=== PATIENT | female | born 1985 | race Caucasian/White ===

== ENCOUNTER 2023-08-16 18:30 | Emergency (ER) | payer BC, SELFPAY ==
[2023-08-16 18:48] VITALS: BP 139/84
[2023-08-16 19:13] LABS: % Basophils 0.9 % (0-2); % Eosinophils 0.9 % (0-6); % Immature Granulocytes 0.3 % (0-0.5); % Lymphocytes 35.2 % (20.5-51.1); % Monocytes 6.9 % (1.7-9.3); % Neutrophils 55.8 % (42.2-75.2); Absolute Basophils 0.1 10^3/uL (0-0.2); Absolute Eosinophils 0.1 10^3/uL (0-0.7); Absolute Monocytes 0.4 10^3/uL (0.1-0.6); Absolute Neutrophils 3.2 10^3/uL (1.4-6.5); Hematocrit 34.1 % (37.0-47.0); Mean Corp Hgb Conc. 32.3 g/dL (33.0-37.0); Mean Corpuscular Hgb 25.9 pg (27.0-31.0); Mean Corpuscular Volume 80.4 fL (81.0-99.0); Mean Platelet Volume 10.7 fL (7.4-10.4); Nucleated Red Blood Cells % 0 %; Platelet Count 339 10^3/uL (130-400); Red Blood Cell Count 4.24 10^6/uL (4.20-5.40); Red Cell Dist. Width 15.2 % (11.5-14.5); White Blood Cell Count 5.8 10^3/uL (4.8-10.8)
[2023-08-16 19:23] LABS: HCG, Serum Qualitative Screen Negative
[2023-08-16 19:29] LABS: ALT (SGPT) 38 U/L (0-35); AST (SGOT) 31 U/L (14-36); Albumin 4.7 g/dl (3.5-5.0); Alkaline Phosphatase 42 U/L (38-126); Blood Urea Nitrogen 12 mg/dl (7-17); Calcium 10.1 mg/dl (8.4-10.2); Carbon Dioxide 27 mmol/L (22-30); Chloride 103 mmol/L (98-107); Glucose 106 mg/dl (70-99); Potassium 3.7 mmol/L (3.5-5.1); Sodium 138 mmol/L (135-145); Total Bilirubin 0.4 mg/dl (0.2-1.3); Total Protein 7.5 g/dl (6.3-8.2); eGFR > 60.00
[2023-08-16 19:37] LABS: Troponin I < 0.012 ng/ml
--- NOTE | 2023-08-16 19:45 | ED.GENMED ---
History of Present Illness
General
Chief Complaint: Chest Problem
Source: patient
Exam Limitations: none
Time Seen by Provider: 08/16/23 19:38
Nursing documentation reviewed up to this point in time: agreed with
Travel History
Have you had any contact with someone who has COVID-19?: No
Do you have any symptoms of coronavirus? Fever > 100 degrees, chills, cough, shortness of breath, sore throat, loss of taste or smell, muscle aches, or headache?: No
History of Present Illness
History of Present Illness:
38-year-old female presents emergency department complaining of generalized weakness, unable to gain weight, vomiting, chest discomfort and hot flashes. She was seen at [facility], with no definitive diagnosis found, CBC, CMP lipase and EKG
were all normal with the exception of mild anemia with hemoglobin 10.5
Past History
Past History
ED Past Medical History: Asthma and Other (Migraines, anorexia, nausea vomiting)
ED Past Surgical History: Appendectomy, and Orthopedic (Ulnar nerve left arm)
Social History
Tobacco: Non-smoker
Alcohol: None
Drug: Marijuana
Review of Systems
Review of Systems
Allergies reviewed?: Yes
All Other Systems: Not applicable
Constitutional: Reports no symptoms
EENT: Reports no symptoms
Respiratory: Reports no symptoms
Cardiac: Reports no symptoms
ABD/GI: Reports abdominal pain and vomiting
: Reports no symptoms
Musculoskeletal: Reports no symptoms
Skin: Reports no symptoms
Neurological: Reports no symptoms
Endocrine: Reports no symptoms
Hematologic/Lymphatic: Reports no symptoms
Psychiatric: Reports no symptoms
Phy Exam
Physical Exam
Physical Exam:
Physical Exam
General: no apparent distress, not acutely ill
Neck: supple. no meningeal signs. normal posterior pharynx
Heart: s1/s2 regular rate and rhythm, no murmur. equal radial
pulses.
HEENT: Pupils equal round reactive to light, EOMI
Lungs: no acute respiratory distress. clear bilaterally
Abdomen: normal bowel sounds. Mild epigastric tenderness. No CVAT
Neuro: alert and oriented. no focal neurological deficits cranial nerves II through XII intact
Skin: no rash
Psychiatric: well kept. interactive and cooperative
Extremities: no edema. no calf tenderness. negative homans. good distal pulses
Course
Orders/Labs/Results
Orders:
Orders
08/16/23 18:32
Electrocardiogram (*1) Urgent
Reason for Study: Chest Pain
EKG- Treatment ONCE
08/16/23 18:48
CMP [Comprehensive Metabolic Panel] Urgent
HCG, Serum Qualitative Screen Urgent
Lipase Urgent
TSH Reflex To Free T4 Urgent
Comment: ADD ON
Vitamin B12 Urgent
Comment: ADD ON
08/16/23 18:52
Test Result ONCE
08/16/23 18:57
CBC/With Diff [Complete Blood Count/With Diff] Urgent
Troponin I Urgent
08/16/23 20:04
IV Insert/Care/Rem.- Treatment PRN
0.9% Sodium Chloride 1000 ml [Nss] 1,000 ml IV BOLUS
Pantoprazole [Protonix IV] 40 mg IV NOW STA
US Abdomen Complete/Upper Urgent
Comment:
Reason For Exam: epigastric abdominal pain
08/16/23 20:14
Add On- LAB Urgent
Tests Added?: b12, thiamine
08/16/23 20:22
Haloperidol Lactate [Haldol] 1 mg IV NOW STA
08/16/23 20:25
Add On- LAB Urgent
Tests Added?: tsh w/reflex T4
08/16/23 21:10
Electrocardiogram (*1) Routine
Reason for Study: QTc Monitoring
08/16/23 21:11
EKG- Treatment ONCE
Abnormal Lab Results
08/16/23 08/16/23
18:48 18:57
Hgb 11.0 L g/dL
(12.0-16.0)
Hct 34.1 L %
(37.0-47.0)
MCV 80.4 L fL
(81.0-99.0)
MCH 25.9 L pg
(27.0-31.0)
MCHC 32.3 L g/dL
(33.0-37.0)
RDW 15.2 H %
(11.5-14.5)
MPV 10.7 H fL
(7.4-10.4)
Creatinine 0.5 L mg/dL
(0.6-1.0)
Glucose 106 H mg/dl
(70-99)
ALT 38 H U/L
(0-35)
08/16/23 18:57
08/16/23 18:48
Vital Signs
Initial and Last Documented VS:
Initial Vital Signs
Temp Pulse Resp BP Pulse Ox
98.1 F 61 18 139/84 98
08/16/23 18:48 08/16/23 18:48 08/16/23 18:48 08/16/23 18:48 08/16/23 18:48
Last Documented Vital Signs
Temp Pulse Resp BP Pulse Ox
98.1 F 61 18 137/90 98
08/16/23 18:48 08/16/23 18:48 08/16/23 18:48 08/16/23 21:00 08/16/23 21:15
MDM/Problems Addressed
Differential Diagnosis Includes:
pancreatitis, cholecysitis, cannabis hyperemesis cannabis
MDM/Problems Addressed:
38 yo female with n/v, abdominal pain. No acute findings, but chronic symptoms possibly due chronic cannabis use and anorexia.
Chronic conditions affecting care: Asthma and Other (anorexia)
Acute Exacerbation and/or Progression of Chronic Illness: Asthma and Other (anorexia)
*Radiology
Radiology exam reviewed: radiology read reviewed (US abd nad)
*Pulse Oximetry
Patient hypoxic: no
*EKG
Interpreted by ED Provider?: Yes
EKG Intrepretation Date: 08/16/23
EKG Intrepretation Time: 18:44
Interpretation: abnormal
Comparison EKG: no comparison EKG present
Heart Rate: 65
Rate: normal
Rhythm: sinus
[place]: normal axis
Interval: short [place]
QRS Pattern: normal QRS
Ischemia: no ischemia
*Vp Clinical Research Interpretation
Rate: normal
Interpretation: normal
Heart Rate: 61
Rhythm: sinus
*Critical Care Note
Total Time (30-74mins, 75-104mins- exclusive of procedures): Not Applicable
Data Reviewed
Review of Other/Old Records Reveals: Labs
Patient Management
Social determinants of health affecting care: Living situation and Strong social support
Escalation/DeEscalation of care consider admission/obs:
admit not indicated
ED Attending Note
-
Portions of this chart may have been created with voice recognition software.� Occasional wrong word or��sound alike� substitutions may have occurred due to the inherent limitations of voice recognition software.
Discharge Plan
Departure
Patient Disposition: Home (Routine Discharge)
Date of Disposition: 08/16/23
Time of Disposition: 22:49
Patient with high blood pressure during this ER visit?: Yes
Condition: Good
Discharge Problem:
Vomiting, Abdominal pain
Instructions: Nausea and Vomiting, Adult, Cannabis hyperemesis syndrome, BLOOD PRESSURE
Prescriptions:
New
ondansetron 4 mg tablet,disintegrating
4 mg PO Q8H PRN (Reason: nausea and vomiting) 4 Days Qty: 10 0RF
Referrals:
NONE,* [Family Provider] -
Char Mcelroy MD [Active] - Call in 1-3 days for appt
Interventions
Interventions:
*Risk Screen - Suicide Last Done: 08/16/23 21:14
*General Assessment Last Done: 08/16/23 21:14
*Neglect/Abuse Screening Last Done: 08/16/23 21:14
ED- Fall Risk Assessment Last Done: 08/16/23 21:14
*ED COVID-19 Vaccine History Last Done: 08/16/23 21:14
ED- Cardiac Assessment Last Done: 08/16/23 21:14
ED- Pulmonary Assessment Last Done: 08/16/23 21:14
[2023-08-16 19:59] LABS: Lipase 148 U/L (23-300)
[2023-08-16 20:55] VITALS: BP 122/86
[2023-08-16 21:00] VITALS: BP 137/90
[2023-08-16] MEDS: NSS 1000 IV (21:00)
[2023-08-16] MEDS: PROTONIX IV 40 MG IV (21:05)
[2023-08-16] MEDS: HALDOL 1 MG IV (21:08)
[2023-08-16 21:10] LABS: TSH Reflex To Free T4 1.48 uIU/ml (0.47-4.68)
[2023-08-16 21:13] VITALS: BMI 18.1
[2023-08-16 22:20] VITALS: BP 111/71
[2023-08-16 22:43] LABS: Vitamin B12 986 pg/ml (239-931)
[2023-08-16 23:00] VITALS: BP 117/84
[2023-08-21 06:38] LABS: Vitamin B1, Plasma 8 nmol/L (4-15)
== END 2023-08-16 23:18 | disposition home or self-care (01) ==
LOC: EMR 18:30
PROVIDERS: Emergency Medicine; EMERGENCY PHYSICIAN Emergency Medicine
DX: R10.9 Unspecified abdominal pain (principal); R11.10 Vomiting, unspecified; R03.0 Elevated blood-pressure reading, without diagnosis of hypertension
CPT/HCPCS: 99285; 76700; 80053; 82607; 83690; 84425; 84443; 84484; 84703; 85025; 93005

== ENCOUNTER 2023-11-06 10:27 | Emergency (ER) | payer BC, SELFPAY ==
[2023-11-06 10:43] VITALS: BP 131/87
--- NOTE | 2023-11-06 11:23 | ED.SKININJ ---
HPI-Injury
General
Chief Complaint: Bite
Exam Limitations: none
Time Seen by Provider: 11/06/23 11:03
Travel History
Have you had any contact with someone who has COVID-19?: No
Do you have any symptoms of coronavirus? Fever > 100 degrees, chills, cough, shortness of breath, sore throat, loss of taste or smell, muscle aches, or headache?: No
History of Present Illness-Injury
Is pt an associate of [facility]?: No
Initial Injury comments:
See MDM
Past History
Past History
ED Past Medical History: Asthma and Other (Migraines, anorexia, nausea vomiting)
ED Past Surgical History: Appendectomy, and Orthopedic (Ulnar nerve left arm)
Social History
Tobacco: Non-smoker
Alcohol: None
Drug: Marijuana
Phy Exam
Physical Exam
Physical Exam:
See MDM
Course
Orders/Labs/Results
Orders:
Orders
11/06/23 11:20
Tetanus/Diphth/Acelpertussis [Adacel] 0.5 ml IM .ONCE ONE
11/06/23 11:26
Neomycin/Polymyxin/Hc [Cortisporin Otic Suspension] See Dose Instructions OTIC NOW STA
11/06/23 12:06
Rabies Immune Globulin/Pf [HyperRAB] 1,166 unit IM NOW STA
11/06/23 12:15
Rabies Vaccine (Pcec)/Pf [Rabavert Rabies Vacc W-Diluent] 2.5 unit IM .ONCE ONE
11/06/23 12:16
Complete Blood Count/With Diff Urgent
Comprehensive Metabolic Panel Urgent
Abnormal Lab Results
11/06/23
12:16
Hgb 10.4 L g/dL
(12.0-16.0)
Hct 32.8 L %
(37.0-47.0)
MCV 77.4 L fL
(81.0-99.0)
MCH 24.5 L pg
(27.0-31.0)
MCHC 31.7 L g/dL
(33.0-37.0)
RDW 16.6 H %
(11.5-14.5)
Absolute Lymphs (auto) 1.1 L 10^3/uL
(1.2-3.4)
Neutrophils % 79.5 H %
(42.2-75.2)
Lymphocytes % 14.3 L %
(20.5-51.1)
Glucose 101 H mg/dl
(70-99)
11/06/23 12:16
11/06/23 12:16
Vital Signs
Initial and Last Documented VS:
Initial Vital Signs
Temp Pulse Resp BP Pulse Ox
98.3 F 85 16 131/87 100
11/06/23 10:43 11/06/23 10:43 11/06/23 10:43 11/06/23 10:43 11/06/23 10:43
Last Documented Vital Signs
Temp Pulse Resp BP Pulse Ox
98.3 F 85 16 131/87 100
11/06/23 10:43 11/06/23 10:43 11/06/23 10:43 11/06/23 10:43 11/06/23 10:43
MDM/Problems Addressed
Differential Diagnosis Includes:
HPI and MDM Narrative:
38-year-old female presenting with a bite from a baby groundhog. Patient noticed that groundhogs were recently born. She states 1 did not look like it was doing well so she tried to pick it up and it bit her on her left middle finger. She states
it did draw blood.
Patient seeking rabies vaccine. She is unsure about her last tetanus shot. Patient also stating that she believes she has an undiagnosed seizure disorder. She states that this only happens when she is alone. Never happens in front of other
people. She states she gets overwhelmed and anxious and it feels like she falls asleep even though she never loses consciousness. She denies any uncontrollable body movements or loss of bowel or bladder function. She states her psychiatrist
believes this is not a seizure. I tend to agree. She is supposed to restart her trileptal. I discussed she should have this further evaluated by a neurologist
Patient also complaining of right ear pain. Patient states her ear is clogged and she has been picking at it
Physical exam
General: Well appearing and non-toxic
HEENT: protecting airway. Right-sided otitis externa with self-inflicted abrasions
Neck: appears supple
CV: No evidence of cyanosis
Resp: No accessory muscle use
Abd: Non-distended
Extremities: Extremely small skin bite to left middle finger
Neuro: alert
Psych: Normal affect
Skin: Intact
Problems Addressed including Acute and Chronic Conditions affecting care:
1. Animal bite
Acuity: acute
Prognosis: stable
Details: I discussed low transmission of rabies from groundhog. Patient is seeking rabies vaccine. Will start the rabies vaccine and update tetanus
2. Right ear otitis externa
Acuity: acute
Prognosis: stable
Details: Will start Cortisporin
3. Seizure-like activity
Acuity: acute
Prognosis: stable
Details: Discussed this is likely more mental health and true seizures. Discussed taking her Trileptal and following up with neurology
Updates
Discussed low hemoglobin and increasing her iron intake
Differential Diagnosis (but not limited to): Stress, anxiety, animal bite, otitis externa
Testing considered: CT head but she has no focal deficits
Drug therapy (if applicable): OTC meds, please see d/c instruction regarding Rx drugs
Amount and/or Complexity of Data Reviewed
Clinical info obtained from: Patient
External data reviewed: N/A
Labs I independently reviewed (but not limited to): Anemia
Radiology: N/A
Pulse Ox: not hypoxic
EKG independently reviewed: N/A
[place]: N/A
Critical Care: N/A
Risk of Complication:
Social Determinants of health: Good social support
Discussed with other providers: N/A
Escalation of Care includes Admit/Obs: After being observed in the Emergency Department, pt stable for discharge.
Occasional wrong word or 'sound a like' substitutions may have occurred due to the inherent limitations of voice recognition software. Read the chart carefully and recognize, using context, where substitutions have occurred.
*Critical Care Note
Total Time (30-74mins, 75-104mins- exclusive of procedures): Not Applicable
ED Attending Note
-
Portions of this chart may have been created with voice recognition software.� Occasional wrong word or��sound alike� substitutions may have occurred due to the inherent limitations of voice recognition software.
Discharge Plan
Departure
Patient Disposition: Home (Routine Discharge)
Date of Disposition: 11/06/23
Time of Disposition: 13:33
Patient with high blood pressure during this ER visit?: No
Discharge Problem:
Animal bite, Otitis externa
Instructions: Rabies
Prescriptions:
New
Imovax Rabies Vaccine (PF) 2.5 unit recon soln
2.5 unit IM ONCE Qty: 3 0RF
Rx Instructions:
Day 3: 11/09/23
Day 7: 11/13/23
Day 14: 11/20/23
No Action
ondansetron 4 mg tablet,disintegrating
4 mg PO Q8H PRN (Reason: nausea and vomiting) 4 Days Qty: 10 0RF
Referrals:
NONE,* [Family Provider] -
Stand Alone Forms: Rabies Vaccine Post Exp Dosing
Activity Restrictions/Additional Instructions:
Please return for any worsening symptoms.
You may return at any time if you have further concerns.
Please go to the infusion center to finish the rabies vaccine.
Please follow up with your doctor at the first available appointment, preferably this week.
Please start the Trileptal as prescribed. Please use the eardrops for the next [address] 4 drops in your right ear 4 times a day.
Thank you for choosing [facility].
Interventions
Interventions:
*Risk Screen - Suicide Last Done: 11/06/23 10:43
*General Assessment Last Done: 11/06/23 10:43
*Neglect/Abuse Screening Last Done: 11/06/23 10:43
*ED COVID-19 Vaccine History Last Done: 11/06/23 10:43
Discharge Date and Time
Print Language: MAURITIAN
[2023-11-06 11:24] VITALS: BMI 21.4
[2023-11-06] MEDS: RABAVERT RABIES VACC W-DILUENT 2.5 UNIT IM (12:26)
[2023-11-06] MEDS: HyperRAB 1166 UNIT IM (12:29)
[2023-11-06 12:39] LABS: % Basophils 0.8 % (0-2); % Eosinophils 0.3 % (0-6); % Immature Granulocytes 0.5 % (0-0.5); % Lymphocytes 14.3 % (20.5-51.1); % Monocytes 4.6 % (1.7-9.3); % Neutrophils 79.5 % (42.2-75.2); Absolute Basophils 0.1 10^3/uL (0-0.2); Absolute Lymphocytes 1.1 10^3/uL (1.2-3.4); Absolute Monocytes 0.4 10^3/uL (0.1-0.6); Absolute Neutrophils 6.2 10^3/uL (1.4-6.5); Hematocrit 32.8 % (37.0-47.0); Hemoglobin 10.4 g/dL (12.0-16.0); Mean Corp Hgb Conc. 31.7 g/dL (33.0-37.0); Mean Corpuscular Hgb 24.5 pg (27.0-31.0); Mean Corpuscular Volume 77.4 fL (81.0-99.0); Mean Platelet Volume 9.9 fL (7.4-10.4); Nucleated Red Blood Cells % 0 %; Platelet Count 355 10^3/uL (130-400); Red Blood Cell Count 4.24 10^6/uL (4.20-5.40); Red Cell Dist. Width 16.6 % (11.5-14.5); White Blood Cell Count 7.8 10^3/uL (4.8-10.8)
[2023-11-06] MEDS: ADACEL 0.5 ML IM (12:39)
[2023-11-06 12:45] LABS: ALT (SGPT) 26 U/L (0-35); AST (SGOT) 26 U/L (14-36); Albumin 4.6 g/dl (3.5-5.0); Alkaline Phosphatase 46 U/L (38-126); Blood Urea Nitrogen 10 mg/dl (7-17); Calcium 9.6 mg/dl (8.4-10.2); Carbon Dioxide 26 mmol/L (22-30); Chloride 106 mmol/L (98-107); Estimated Creatinine Clearance 116 ml/min; Glucose 101 mg/dl (70-99); Potassium 3.9 mmol/L (3.5-5.1); Sodium 139 mmol/L (135-145); Total Bilirubin 0.4 mg/dl (0.2-1.3); Total Protein 7.3 g/dl (6.3-8.2); eGFR > 60.00
[2023-11-06] MEDS: CORTISPORIN OTIC SUSPENSION 1 DROP OTIC (12:57)
== END 2023-11-06 14:08 | disposition home or self-care (01) ==
LOC: EMR 10:27
PROVIDERS: EMERGENCY PHYSICIAN Student in an Organized Health Care Education/Training Program
DX: S61.253A Open bite of left middle finger without damage to nail, initial encounter (principal); H60.501 Unspecified acute noninfective otitis externa, right ear; W55.81XA Bitten by other mammals, initial encounter; Z20.3 Contact with and (suspected) exposure to rabies; Z23 Encounter for immunization; J45.909 Unspecified asthma, uncomplicated; G43.909 Migraine, unspecified, not intractable, without status migrainosus; R56.9 Unspecified convulsions
CPT/HCPCS: 90375; 99284; 90471; 96372; 80053; 85025; 90675; 90715

== ENCOUNTER 2023-11-18 08:56 | Emergency (ER) | payer MEDICARE, SELFPAY ==
[2023-11-18 08:57] VITALS: BP 158/95
[2023-11-18 09:01] LABS: Glucose - Point of Care 112 mg/dl (70-99)
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
[2023-11-18] MEDS: NSS 1000 IV (09:18)
[2023-11-18 09:25] LABS: % Basophils 0.6 % (0-2); % Eosinophils 0.7 % (0-6); % Immature Granulocytes 0.6 % (0-0.5); % Lymphocytes 12.7 % (20.5-51.1); % Monocytes 5.8 % (1.7-9.3); % Neutrophils 79.6 % (42.2-75.2); Absolute Basophils 0.1 10^3/uL (0-0.2); Absolute Eosinophils 0.1 10^3/uL (0-0.7); Absolute Immature Granulocytes 0.1 10^3/uL (0-0.05); Absolute Lymphocytes 1.4 10^3/uL (1.2-3.4); Absolute Monocytes 0.6 10^3/uL (0.1-0.6); Absolute Neutrophils 8.8 10^3/uL (1.4-6.5); Hematocrit 32.5 % (37.0-47.0); Hemoglobin 10.1 g/dL (12.0-16.0); Mean Corp Hgb Conc. 31.1 g/dL (33.0-37.0); Mean Corpuscular Hgb 24.2 pg (27.0-31.0); Mean Corpuscular Volume 77.8 fL (81.0-99.0); Mean Platelet Volume 10.5 fL (7.4-10.4); Nucleated Red Blood Cells % 0 %; Platelet Count 373 10^3/uL (130-400); Red Blood Cell Count 4.18 10^6/uL (4.20-5.40); Red Cell Dist. Width 16.7 % (11.5-14.5); White Blood Cell Count 11.1 10^3/uL (4.8-10.8)
[2023-11-18 09:43] LABS: HCG, Serum Qualitative Screen Negative
[2023-11-18 09:47] LABS: ALT (SGPT) 30 U/L (0-35); AST (SGOT) 34 U/L (14-36); Albumin 4.6 g/dl (3.5-5.0); Alkaline Phosphatase 45 U/L (38-126); Blood Urea Nitrogen 13 mg/dl (7-17); Calcium 9.8 mg/dl (8.4-10.2); Carbon Dioxide 25 mmol/L (22-30); Chloride 106 mmol/L (98-107); Glucose 104 mg/dl (70-99); Glycohemoglobin (HgbA1c) 5.6 % (4.0-5.6); Potassium 4.1 mmol/L (3.5-5.1); Sodium 140 mmol/L (135-145); Total Bilirubin 0.5 mg/dl (0.2-1.3); Total Protein 7.5 g/dl (6.3-8.2); eGFR > 60.00
[2023-11-18 09:51] LABS: Troponin I < 0.012 ng/ml
[2023-11-18 10:03] VITALS: BP 138/87
[2023-11-18 10:04] LABS: Urine Albumin Negative (Neg - Trace); Urine Bilirubin Negative (Negative); Urine Character Clear (Clear); Urine Color Yellow; Urine Glucose Negative (Negative); Urine Ketone Negative (Negative); Urine Leukocyte Negative (Negative); Urine Nitrite Negative (Negative); Urine Occult Blood Negative (Negative); Urine Specific Gravity 1.005 (<1.030); Urine Urobilinogen Negative (Neg - 1+)
[2023-11-18 10:10] LABS: TSH Reflex To Free T4 1.47 uIU/ml (0.47-4.68)
[2023-11-18 11:33] LABS: D-Dimer < 0.27 ug/mlFEU (0.00-0.50)
[2023-11-18 13:01] VITALS: BP 131/74
== END 2023-11-18 13:23 | disposition home or self-care (01) ==
LOC: EMR 08:56
PROVIDERS: EMERGENCY PHYSICIAN Emergency Medicine
DX: R07.89 Other chest pain (principal); R10.9 Unspecified abdominal pain; R41.0 Disorientation, unspecified; R03.0 Elevated blood-pressure reading, without diagnosis of hypertension; Z59.01 Sheltered homelessness
CPT/HCPCS: 99285; 96360; 70450; 71046; 74177; 80053; 81003; 82962; 83036; 84443; 84484; 84703; 85025; 85379; 93005; Q9967